=== PATIENT | male | born 1950 | race African-American/Black ===

== ENCOUNTER 2016-12-14 05:35 | Inpatient (IN) | payer MEDICARE, BC ==
[~2016-12-14] VITALS: Ht 182.9 cm; Wt 72.6 kg
[2016-12-14 07:21] LABS: BASOPHILS % 0.8 % (0.0-2.0); HEMATOCRIT. 38.6 % (42.0-52.0); HEMOGLOBIN. 12.9 g/dL (14.0-18.0); LYMPHOCYTES % 19.8 % (20.0-50.0); MEAN CORPUSCULAR HEMOGLOBIN 32.4 pg (28.0-32.0); MEAN CORPUSCULAR VOLUME 96.6 fL (80.0-94.0); MONOCYTES % 4.7 % (2.0-8.0); NEUTROPHILS % 73.7 % (40.0-76.0); PLATELET 319 x1000/uL (130-400); RED CELL DISTRIBUTION WIDTH 14.3 % (11.6-14.6)
[2016-12-14 07:34] LABS: CARBON DIOXIDE 28 mEq/L (21-32); CHLORIDE 105 mEq/L (98-107)
[2016-12-14 07:48] LABS: PROTHROMBIN TIME 10.6 sec (9.4-11.6)
[2016-12-14] MEDS ORDERED: PHENYLEPHRINE HCL 10 MG/ML 1ML (IV VIAL) IV ONE (08:02)
[2016-12-14] MEDS ORDERED: PROPOFOL 200MG/20ML VIAL IV ONE (08:02)
[2016-12-14] MEDS ORDERED: LIDOCAINE HCL 1% 20ML VIAL (Pyxis) INJ ONE (08:06)
[2016-12-14] MEDS ORDERED: IOHEXOL-300 100 ML BOTTLE ONE ×2 (08:06→10:59)
[2016-12-14] MEDS ORDERED: CLOP75TA16 PO (08:19)
[2016-12-14] MEDS ORDERED: DIPH1TAB PO (08:19)
[2016-12-14] MEDS ORDERED: THROMBIN (BOVINE) 5000 UNITS/VIAL TOP ONE (08:35)
[2016-12-14] MEDS ORDERED: GELATIN SPONGE,ABSORBABLE SZ 100 ONE (08:35)
[2016-12-14] MEDS ORDERED: FENTANYL CITRATE/PF 50MCG/ML 2ML VIAL ONE (08:47)
[2016-12-14] MEDS ORDERED: IOVERSOL 240MG/ML 100ML BOTTLE IV ONE (09:56)
[2016-12-14] MEDS ORDERED: ACETAMINOPHEN 325MG TABLET PO PRN (11:15)
[2016-12-14] MEDS ORDERED: ATROPINE SULFATE 1MG/10ML SYR IV PRN (11:15)
[2016-12-14] MEDS ORDERED: ONDANSETRON HCL 4MG/2ML VIAL IV PRN ×2 (11:45→21:30)
[2016-12-14] MEDS: HYDROMORPHONE HCL/PF 2MG/ML CPJ IV PRN ×3 (12:54→21:41)
[2016-12-14 13:58] LABS: BASOPHILS % 0.5 % (0.0-2.0); EOSINOPHILS % 0.1 % (0.0-5.0); HEMATOCRIT. 35.7 % (42.0-52.0); HEMOGLOBIN. 11.9 g/dL (14.0-18.0); LYMPHOCYTES % 10.3 % (20.0-50.0); MEAN CORPUSCULAR HEMOGLOBIN 32.1 pg (28.0-32.0); MEAN CORPUSCULAR VOLUME 95.9 fL (80.0-94.0); MEAN PLATELET VOLUME 7.2 fl (7.4-10.4); MONOCYTES % 2.9 % (2.0-8.0); NEUTROPHILS % 86.2 % (40.0-76.0); PLATELET 285 x1000/uL (130-400); RED BLOOD CELL COUNT 3.72 mill/uL (4.7-6.1)
[2016-12-14 14:11] LABS: CARBON DIOXIDE 25 mEq/L (21-32); CHLORIDE 106 mEq/L (98-107)
[2016-12-14 14:33] VITALS: BP 150/74
[2016-12-14 15:04] VITALS: BP 143/78
[2016-12-14] MEDS: MORPHINE SULFATE 4 MG/ML CPJ (NOT FOR IM USE) IV PRN ×2 (15:37→19:08)
[2016-12-14 16:00] VITALS: BP 121/78
[2016-12-14 18:00] VITALS: BP 128/92
[2016-12-14 20:00] VITALS: BP 133/80
[2016-12-14] MEDS ORDERED: MORPHINE SULFATE 2 MG/ML CPJ (NOT FOR IM USE) IV PRN (20:00)
[2016-12-14 22:00] VITALS: BP 114/71
[2016-12-15] VITALS (8 sets, daily range): BP systolic 109–136; BP diastolic 70–89
[2016-12-15] MEDS: HYDROMORPHONE HCL/PF 2MG/ML CPJ IV PRN ×3 (01:45→08:25)
[2016-12-15 06:30] LABS: CARBON DIOXIDE 25 mEq/L (21-32); CHLORIDE 106 mEq/L (98-107)
[2016-12-15 06:31] LABS: HEMATOCRIT. 34.3 % (42.0-52.0); HEMOGLOBIN. 11.6 g/dL (14.0-18.0); MEAN CORPUSCULAR HEMOGLOBIN 32.2 pg (28.0-32.0); MEAN CORPUSCULAR VOLUME 95.3 fL (80.0-94.0); PLATELET 250 x1000/uL (130-400); RED BLOOD CELL COUNT 3.59 mill/uL (4.7-6.1); RED CELL DISTRIBUTION WIDTH 14.3 % (11.6-14.6)
[2016-12-15] MEDS ORDERED: ASPIRIN 81MG TABLET PO SCH (09:00)
[2016-12-15 14:16] LABS: PLATELET ESTIMATE NORMAL
== END 2016-12-15 12:28 | disposition home or self-care (01) | DRG 254 ==
LOC: OR 05:35 → 3WST 05:36
PROVIDERS: ADMIT Surgery Vascular Surgery; ATTEND Surgery Vascular Surgery
PROC: 047C3DZ Dilation of Right Common Iliac Artery with Intraluminal Device, Percutaneous Approach (ICD-10-PCS; 2016-12-14)
PROC: 047H3DZ Dilation of Right External Iliac Artery with Intraluminal Device, Percutaneous Approach (ICD-10-PCS; 2016-12-14)
PROC: 04JY0ZZ Inspection of Lower Artery, Open Approach (ICD-10-PCS; 2016-12-14)
PROC: 047 Lower Arteries, Dilation (ICD-10-PCS; principal; 2016-12-14 07:30)
DX: I70.213 Atherosclerosis of native arteries of extremities with intermittent claudication, bilateral legs (principal); I70.0 Atherosclerosis of aorta; M54.9 Dorsalgia, unspecified; Z87.891 Personal history of nicotine dependence
CPT/HCPCS: 36415; 37221; 75710; 80048; 85007; 85025; 85027; 85347; 85610; 85730; 93005; C1714; C1725; C1769; C1874; C1876; C1887; C1893; C1894; J1170; J1644; J2270; J2370; J2405; J2704; J3010; J3490; J7030; J7050; J7120; Q9967

== ENCOUNTER 2021-02-01 07:47 | Inpatient (IN) | payer MEDICARE, BC ==
[~2021-02-01] VITALS: Ht 185.4 cm; Wt 63.5 kg
[2021-02-01] VITALS (38 sets, daily range): BP systolic 85–136; BP diastolic 48–82
[~2021-02-01 07:47] MED LIST: CLOP-31 PO; DIPH1TAB PO
[2021-02-01] MEDS ORDERED: LIDOCAINE HCL 1% 20ML VIAL (Pyxis) INJ ONE ×2 (08:04→10:55)
[2021-02-01] MEDS ORDERED: BUPIVACAINE HCL/PF 0.5% (5MG/ML) 10ML ONE (08:04)
[2021-02-01] MEDS ORDERED: BACITRACIN 15GM TUBE TOP ONE (08:04)
[2021-02-01] MEDS ORDERED: HEPARIN SODIUM 1,000 UNIT/1ML VIAL IV ONE (08:04)
[2021-02-01] MEDS ORDERED: POLYMYXIN B SULFATE 500000 UNITS/VIAL ONE (08:04)
[2021-02-01] MEDS ORDERED: SODIUM CHLORIDE 0.9% 1,000 ML IV SCH (09:00)
[2021-02-01 09:44] LABS: BASOPHILS % 1.1 % (0.0-2.0); EOSINOPHILS % 1.4 % (0.0-5.0); HEMATOCRIT. 38.4 % (42.0-52.0); HEMOGLOBIN. 12.6 g/dL (14.0-18.0); LYMPHOCYTES % 20.7 % (20.0-50.0); MEAN CORPUSCULAR HEMOGLOBIN 32.6 pg (28.0-32.0); MEAN CORPUSCULAR VOLUME 99.6 fL (80.0-94.0); MEAN PLATELET VOLUME 7.5 fl (7.4-10.4); MONOCYTES % 3.9 % (2.0-8.0); NEUTROPHILS % 72.9 % (40.0-76.0); PLATELET 254 x1000/uL (130-400); RED BLOOD CELL COUNT 3.86 mill/uL (4.7-6.1); RED CELL DISTRIBUTION WIDTH 14.3 % (11.6-14.6)
[2021-02-01 09:45] LABS: CHLORIDE 110 mEq/L (98-107)
[2021-02-01 10:02] LABS: PROTHROMBIN TIME 10.7 sec (9.6-11.0)
[2021-02-01] MEDS ORDERED: ONDANSETRON HCL 4MG/2ML INJ IV PRN ×2 (10:45→16:15)
[2021-02-01] MEDS ORDERED: NITROPRUSSIDE 100 MG in SODIUM CHLORIDE 0.9% 246 ML IV PRN (10:45)
[2021-02-01] MEDS ORDERED: NICARDIPINE 40MG/200ML PREMIX 200 ML IV PRN (10:45)
[2021-02-01] MEDS ORDERED: FENTANYL CITRATE/PF 50MCG/ML 2ML VIAL ONE (11:04)
[2021-02-01] MEDS ORDERED: PROPOFOL 200MG/20ML VIAL IV ONE (11:04)
[2021-02-01] MEDS ORDERED: MIDAZOLAM HCL 2 MG/2 ML VIAL ONE (11:04)
[2021-02-01] MEDS ORDERED: NEOSTIGMINE METHYLSULFATE 1MG/ML 10 ML VIAL ONE (11:04)
[2021-02-01] MEDS ORDERED: GLYCOPYRROLATE 0.2 MG/ML 2ML VIAL ONE ×2 (11:04→12:26)
[2021-02-01] MEDS ORDERED: ROCURONIUM BROMIDE 10MG/ML VIAL 5ML IV ONE (11:04)
[2021-02-01] MEDS ORDERED: THROMBIN (BOVINE) 5000 UNITS/VIAL TOP ONE (11:16)
[2021-02-01] MEDS ORDERED: DEXAMETHASONE 4MG/ML 1ML VIAL ONE (11:16)
[2021-02-01] MEDS ORDERED: NALOXONE HCL 0.4MG/ML VIAL IV PRN (11:30)
[2021-02-01] MEDS: MORPHINE SULFATE 2 MG/ML CPJ (NOT FOR IM USE) IV PRN ×2 (14:32→21:23)
[2021-02-01] MEDS: DEXAMETHASONE 4MG/ML 1ML VIAL IV SCH ×2 (14:32→21:08)
[2021-02-01] MEDS ORDERED: ACETAMINOPHEN 325MG TABLET PO PRN (16:15)
[2021-02-01] MEDS ORDERED: HYDROCODONE/ACETAMINOPHEN 5/325MG TABLET PO PRN (16:15)
[2021-02-01] MEDS: SODIUM CHLORIDE 0.9% 1,000 ML IV SCH (17:05)
[2021-02-02] VITALS (37 sets, daily range): BP systolic 91–151; BP diastolic 48–88
[2021-02-02] MEDS: SODIUM CHLORIDE 0.9% 1,000 ML IV SCH ×3 (00:05→16:15)
[2021-02-02] MEDS: MORPHINE SULFATE 2 MG/ML CPJ (NOT FOR IM USE) IV PRN (00:07)
[2021-02-02] MEDS: DEXAMETHASONE 4MG/ML 1ML VIAL IV SCH ×2 (05:24→13:27)
[2021-02-02 06:41] LABS: BASOPHILS % 0.2 % (0.0-2.0); HEMATOCRIT. 33.6 % (42.0-52.0); HEMOGLOBIN. 11.2 g/dL (14.0-18.0); LYMPHOCYTES % 9.4 % (20.0-50.0); MEAN CORPUSCULAR HEMOGLOBIN 33.4 pg (28.0-32.0); MEAN CORPUSCULAR VOLUME 99.8 fL (80.0-94.0); MEAN PLATELET VOLUME 7.9 fl (7.4-10.4); MONOCYTES % 4.1 % (2.0-8.0); NEUTROPHILS % 86.3 % (40.0-76.0); PLATELET 227 x1000/uL (130-400); RED BLOOD CELL COUNT 3.36 mill/uL (4.7-6.1); RED CELL DISTRIBUTION WIDTH 14.6 % (11.6-14.6)
[2021-02-02 07:08] LABS: CHLORIDE 110 mEq/L (98-107)
[2021-02-02] MEDS ORDERED: NICARDIPINE 50 MG in SODIUM CHLORIDE 0.9% 250 ML IV PRN (08:15)
[2021-02-02] MEDS ORDERED: CLOPIDOGREL 75MG TABLET PO SCH (09:00)
[2021-02-02] MEDS ORDERED: PANTOPRAZOLE 40MG DR TABLET PO SCH (09:00)
[2021-02-02 09:55] LABS: METHADONE URINE SCREEN NEGATIVE (NEGATIVE); OPIATES URINE SCREEN PRESUMTIVE POSITIVE (NEGATIVE)
[2021-02-02 09:56] LABS: *AMPHETAMINES SCREEN URINE NEGATIVE (NEGATIVE); *BARBITURATES SCREEN URINE NEGATIVE (NEGATIVE); *BENZODIAZEPINES SCREEN URINE PRESUMTIVE POSITIVE (NEGATIVE); *COCAINE SCREEN URINE NEGATIVE (NEGATIVE); CANNABINOID URINE SCREEN NEGATIVE (NEGATIVE); PHENCYCLIDINE URINE SCREEN NEGATIVE (NEGATIVE)
[2021-02-02] MEDS ORDERED: IOHEXOL-300 100 ML BOTTLE ONE (10:26)
[2021-02-02 12:03] LABS: T4 FREE 1.17 ng/dL (0.76-1.46)
== END 2021-02-02 16:36 | disposition home or self-care (01) | DRG 39 ==
LOC: OR 07:47 → CVICU 14:19
PROVIDERS: ADMIT Surgery Vascular Surgery; ATTEND Surgery Vascular Surgery
PROC: 03CJ0ZZ Extirpation of Matter from Left Common Carotid Artery, Open Approach (ICD-10-PCS; principal; 2021-02-01)
PROC: 03CL0ZZ Extirpation of Matter from Left Internal Carotid Artery, Open Approach (ICD-10-PCS; 2021-02-01)
PROC: 03CN0ZZ Extirpation of Matter from Left External Carotid Artery, Open Approach (ICD-10-PCS; 2021-02-01)
DX: I65.22 Occlusion and stenosis of left carotid artery (principal); I73.9 Peripheral vascular disease, unspecified; Z20.822 Contact with and (suspected) exposure to COVID-19; E78.5 Hyperlipidemia, unspecified; Z87.891 Personal history of nicotine dependence; Z86.73 Personal history of transient ischemic attack (TIA), and cerebral infarction without residual deficits; Z95.820 Peripheral vascular angioplasty status with implants and grafts; I71.4 Abdominal aortic aneurysm, without rupture; R00.1 Bradycardia, unspecified
CPT/HCPCS: 36415; 74177; 80048; 80305; 84439; 84443; 85025; 87426; 88304; 88311; 93005; 97166; J1100; J1644; J2250; J2270; J2405; J2704; J2710; J3010; J3490; J7030; Q9967